=== PATIENT | male | born 1980 | race Two or more races ===

== ENCOUNTER 2020-10-27 12:19 | Outpatient (REF) | payer BC, SELFPAY ==
[2020-10-27 14:50] LABS: Alanine Aminotransferase 204 U/L (0-40); Albumin Level 4.1 g/dL (3.5-5.0); Alkaline Phosphatase 43 U/L (39-117); Anion Gap 13 (12-20); Aspartate Amino Transferase 47 U/L (5-37); Bilirubin Total 0.8 mg/dL (0.0-1.0); Blood Urea Nitrogen 14 mg/dL (9-16); Calcium 9.8 mg/dL (8.4-10.2); Carbon Dioxide 29 mmol/L (22-29); Chloride 102 mmol/L (96-108); Cholesterol 205 mg/dL; Estimated Glomerular Filt Rate > 60; Glucose Fasting 88 mg/dL (60-99); HDL Cholesterol 56 mg/dL; LDL Cholesterol Calculated 121 mg/dl; Potassium 4.2 mmol/L (3.3-5.1); Sodium 140 mmol/L (135-145); Total Protein 8.6 g/dL (6.5-8.0); Triglycerides 143 mg/dL
[2020-10-27 15:06] LABS: TSH reflex Free T4 2.76 uIU/mL (0.32-4.0)
== END 2020-10-27 12:20 | disposition home or self-care (01) ==
LOC: HO.HMGCLDS 12:19
PROVIDERS: PCP Nurse Practitioner Family; Visit Provider Nurse Practitioner Family
DX: Z00.00 Encounter for general adult medical examination without abnormal findings (principal); R74.8 Abnormal levels of other serum enzymes
CPT/HCPCS: 36415; 80053; 80061; 84443

== ENCOUNTER 2020-10-28 14:28 | Outpatient (REF) | payer BC, SELFPAY ==
[2020-10-29 04:31] LABS: Hepatitis B Surface Antigen Negative (Negative)
[2020-10-29 04:49] LABS: HBS Num1 132.14 mIU/mL (0-7.99); Hepatitis B Core Antibody Nonreactive (Nonreactive); ~HepC Num1 0.06 S/CO (0.00-0.79); ~Hepatitis B Surface Antibody REACTIVE (Nonreactive); ~Hepatitis C Antibody Nonreactive (Nonreactive)
[2020-10-29 13:27] LABS: Lyme Abs Screen <0.90 index
[2020-10-30 04:19] LABS: Hepatitis A Antibody IgM 0.12 Index (0-0.79); ~Hepatitis A Antibody IgM Nonreactive (Nonreactive)
== END 2020-10-28 14:29 | disposition home or self-care (01) ==
LOC: HO.HMGCLDS 14:28
PROVIDERS: PCP Nurse Practitioner Family; Visit Provider Nurse Practitioner Family
DX: R74.8 Abnormal levels of other serum enzymes (principal)
CPT/HCPCS: 36415; 86617; 86618; 86704; 86706; 86709; 86803; 87340

== ENCOUNTER 2020-12-01 08:13 | Outpatient (REF) | payer BC, SELFPAY ==
--- NOTE | ~2020-12-01 | US_ITS ---
EXAMINATION: US ABDOMEN COMPLETE CLINICAL INFORMATION: Abnormal LFTs. COMPARISON: CT abdomen pelvis 06/06/2018 TECHNIQUE: Real-time imaging of the abdominal viscera. FINDINGS: PANCREAS: Normal. ABDOMINAL AORTA: The proximal, mid, and distal segments are normal in caliber. INFERIOR VENA CAVA: Visualized portions are normal. LIVER: Liver echotexture is increased. The liver is normal in size. The liver contour is normal. No focal hepatic lesion. There is no intrahepatic biliary duct dilatation seen. GALLBLADDER: Normal. The gallbladder is physiologically distended without evidence of stones, sludge, polyps, wall thickening or pericholecystic fluid. COMMON BILE DUCT: Normal in caliber measuring 0.40 cm in diameter. RIGHT KIDNEY: Normal. No hydronephrosis. No renal calculi or focal parenchymal lesions. The kidney measures 13.0 cm in maximum dimension. LEFT KIDNEY: There is mild left hydronephrosis. There is a cyst in the upper pole measuring 7 x 5 x 5 mm. No renal calculi. The kidney measures 14.7 cm in maximum dimension. SPLEEN: Normal. The spleen measures 13.0 cm in maximum dimension. FREE FLUID: None. US/US abdomen complete IMPRESSION: Echogenic liver probably representing fatty infiltration. Mild left hydronephrosis. Small left renal cyst.
== END 2020-12-01 08:14 | disposition home or self-care (01) ==
LOC: HO.HMGCX 08:13
PROVIDERS: PCP Nurse Practitioner Family; Visit Provider Nurse Practitioner Family
DX: R74.8 Abnormal levels of other serum enzymes (principal)
CPT/HCPCS: 76700

== ENCOUNTER → 2021-01-27 14:52 | Outpatient (BNVA) | payer BC, SELFPAY | PROVIDERS: Visit Provider Urology ==

== ENCOUNTER 2021-06-28 14:56 | Outpatient (REF) | payer BC, SELFPAY ==
--- NOTE | ~2021-06-28 | CT_ITS ---
EXAMINATION: CT ABDOMEN WITHOUT CONTRAST CLINICAL INFORMATION: Calculus of kidney. COMPARISON: Ultrasound abdomen 12/01/[address] abdomen and pelvis 06/06/2018 TECHNIQUE: Multidetector volumetric imaging was performed from the superior aspect of the liver through the pubic symphysis. Sagittal and coronal reformatted images were obtained on the technologist's workstation. This CT examination was performed using dose optimization techniques as appropriate, variously including the following: *Automated exposure control *Adjustment of mA and/or kV according to patient size (this includes techniques or standardized protocols for targeted exams where dose is matched to indication/reason for exam; i.e. extremities or head) *Use of iterative reconstruction technique DLP: 423 mGy-cm FINDINGS: LUNG BASES: The lung bases are clear. The heart size is normal. LIVER, GALLBLADDER, AND BILIARY TREE: The liver is normal in size, shape, and attenuation. No focal hepatic lesion or biliary ductal dilatation is present. The gallbladder is contracted and appears unremarkable. PANCREAS: Unremarkable. SPLEEN: Unremarkable. ADRENAL GLANDS: Unremarkable. KIDNEYS AND URETERS: The kidneys are normal in size, shape, and attenuation. There is a 6 mm nonobstructive radiopaque calculi lower pole left kidney. It is approximately 13.5 cm from the posterior skin line. No additional radiopaque calculi seen. No caliectasis or hydronephrosis seen. There is a 6 mm exophytic lesion upper pole left kidney, stable. BLADDER: The bladder was not imaged. GASTROINTESTINAL TRACT: There is scattered stool and gas seen throughout the colon without significant distention. ABDOMINAL WALL: There is a small umbilical hernia containing intraperitoneal fat. LYMPH NODES: Small shotty lymph nodes are seen in the right mesentery with largest lymph node measuring 1 cm. VASCULAR: Unremarkable. PELVIC VISCERA: Unremarkable. OSSEOUS STRUCTURES: No aggressive lytic or sclerotic process seen. CT/CT abdomen pelvis wo con IMPRESSION: 6 mm nonobstructive radiopaque calculi lower pole left kidney. No caliectasis or hydronephrosis. On previous CT abdomen 06/07/2018 same stone measured 3 mm. 6 mm exophytic lesion upper pole left kidney, stable.
== END 2021-06-28 14:57 | disposition home or self-care (01) ==
LOC: HO.CT 14:56
PROVIDERS: PCP Nurse Practitioner Family; Visit Provider Urology
DX: N20.0 Calculus of kidney (principal)
CPT/HCPCS: 74176

== ENCOUNTER → 2022-08-16 16:00 | Outpatient (REF) | payer BC, SELFPAY ==
--- NOTE | 2022-08-16 16:04 | CA_ITS ---
Transthoracic Echocardiogram Patient (Last, First, Middle): Doe Celaya M Gender: Male Date of : 1980 Age: 42 Procedure Date: 08/16/2022 Procedure Type: Transthoracic Echocardiogram Location: OP Height: 190.5 cm Weight: 134.04 kg BSA: 2.59 m2 Heart Rate: bpm BP: 142 / 84 mmHg Marble Machine Operator: ANGELLA Referring MD: Rigo Marques [facility] [employer] Supervisor: Alvin Rivera MD Symptoms: R07.89 - Other chest pain Study Quality: Adequate ECG Rhythm: Sinus with extra beats Conclusions: - 1. Normal LV systolic function with mild LVH with impaired relaxation filling pattern 2. Normal cardiac valvular Dopplers 3. Normal RV systolic pressure 4. No gross pericardial effusion Findings Left Ventricle Normal left ventricular size and systolic function. There is mildly increased left ventricular wall thickness. The visually estimated ejection fraction is between 55-60%. Spectral Doppler is indicative of an impaired relaxation filling pattern. E/E prime ratio is between 8 and 15 consistent with indeterminate filling pressures. Right Ventricle Normal right ventricular cavity size and systolic function. Atria The left atrium is likely dilated. There is no evidence of interatrial shunt. The right atrium is normal in size. Aortic Valve The aortic valve structure and function is likely normal. There is no aortic valve stenosis. There is no aortic valve regurgitation. Mitral Valve Normal mitral valve structure and function. There is trace mitral valve regurgitation. There is no mitral valve stenosis. Pulmonic Valve The pulmonic valve was not well visualized. Tricuspid Valve Normal tricuspid valve structure. There is trace tricuspid valve regurgitation. The right ventricular systolic pressure is normal. The right ventricular systolic pressure is 17 mmHg. Normal right atrial pressure. There is no evidence of pulmonary hypertension. Great Vessels All visible segments of the aorta are normal in size. The pulmonary artery was not well visualized. Venous The inferior vena cava is normal in size and collapses greater than 50% with inspiration. Pericardium/Pleural There is no evidence of pericardial effusion. Prior Study Comparison Changes noted compared to prior study dated: 05/31/2018. mild LVH noted with impaired relaxation filling pattern Measurements 2D Linear Measurements IVSd: 1.23 0.6-0.9/0.6-1.0 cm LVIDd: 5.39 3.9-5.3/4.2-5.9 cm LVIDd Index: 2.08 2.4-3.2/2.2-3.1 cm/m2 LVIDs: 3.37 2.0-3.6 cm LVPWd: 1.20 0.7-1.1 cm Ao Root: 3.40 2.1-3.5 cm LA Diam: 3.90 2.7-3.8/3.0-4.0 cm LAIDs Index: 1.51 1.5-2.3 cm/m2 LV Mass: 334.49 67-162/88-224 g LV Mass Index: 129.15 43-95/49-115 g/m2 LVOT Diam: 2.10 3.0+(-)1.3 cm 2D Systolic Function EF 4C: 51.90 >55% EF 2C: 58.50 >55% EF BiP: 55.20 >55% Mitral Valve MV Pk E: 0.92 MV PK A: 0.89 MV Decel Time: 180.00 E/A: 1.00 E'Lateral: 9.57 E'Medial: 8.05 E/E' Med: 11.40 E/E' Lat: 9.60 PHT: 53.00 MVA PHT: 4.15 Decel [place]: 5.11 Aortic Valve AoV Pk Gustavo: 1.75 AoV Mn Gustavo: 1.14 AoV VTI: 0.31 AoV Pk Grad: 12.00 Aov Mn Grad: 6.00 CRISTA Cont.VTI: 2.48 LVOT LVOT Pk Gustavo: 1.26 LVOT Mn Gustavo: 0.82 LVOT VTI: 0.22 LVOT Pk Grad: 6.00 LVOT Mn Grad: 3.00 LVOT Diam: 2.10 LVOT Area: 3.46 Diastolic Function MV Pk E: 0.92 MV Pk A: 0.89 E/A: 1.00 E'Medial: 8.05 E/E' Med: 11.40 E' Laterial: 9.57 E/E' Lat: 9.60 Right Ventricle TAPSE (mm): 31.00 TVS' Gustavo: 16.00 Tricuspid Valve TR Pk Gustavo: 1.90 TR Pk Grad: 14.00 RA Press: 3.00 RVSP: 17.00 Great Vessels Aorta Ao Root-2D: 3.40 2.0-3.7 cm Ao Asc: 3.60 2.1-3.4 cm Pulmonary Valve PV Pk Gustavo: 1.29 Peak PV Grad: 7.00 Updated in Other Vendor System with Status of Final Alvin Rivera MD electronically signed on 08/17/2022 12:52:46 PM with status of Final
== END ==
LOC: HO.CARD 16:00
PROVIDERS: PCP Nurse Practitioner Family; Visit Provider Nurse Practitioner Family
DX: R07.89 Other chest pain (principal); R01.1 Cardiac murmur, unspecified
CPT/HCPCS: 93306

== ENCOUNTER 2022-10-14 07:18 | Outpatient (REF) | payer BC, SELFPAY ==
[2022-10-14 11:37] LABS: Appearance Urine Cloudy; Color Urine Yellow; Glucose Urine UA Negative (Negative); Leukocyte Esterase Urine Negative (Negative); Nitrite Urine Negative (Negative); PH 5.5 (5.0-9.0); UMIC TRIGGER UACC YES; Urine Blood Trace (Negative); Urine Ketones Negative (Negative); Urine Protein Trace mg/dL (Neg-Trace)
[2022-10-14 11:42] LABS: Bacteria Urine None Seen (None Seen); Hyaline Casts Urine 0-2 /LPF (0-2); RBC Urine 0-2 /HPF (0-2); Squamous Epithelial Cell Urine 0-2 /HPF (0-2); WBC Urine 0-5 /HPF (0-5)
[2022-10-14 11:49] LABS: MANUAL DIFF FLAG NO
[2022-10-14 12:01] LABS: Basophils Percent Auto 0.4 % (0-2); Eosinophils Absolute Auto 0.4 X10*3/uL (0.0-0.4); Eosinophils Percent Auto 4.4 % (0-4); Hematocrit 46.8 % (42.0-52.0); Hemoglobin 15.3 g/dl (14.0-18.0); Imm Gran Abs Auto 0.03 X10*3/uL (0.00-0.03); Imm Gran Pct Auto 0.4 % (0.0-0.4); Lymphocytes Absolute Auto 2.3 X10*3/uL (1.2-4.9); Lymphocytes Percent Auto 28.4 % (20-40); Mean Corpuscular HGB Conc 32.7 g/dl (31.0-36.0); Mean Corpuscular Volume 94.7 fL (80.0-98.0); Mean Platelet Volume 11.2 fL (9.4-12.4); Monocytes Absolute Auto 0.7 X10*3/uL (0.1-1.2); Neutrophils Absolute Auto 4.7 x10*3/uL (2.0-8.3); Neutrophils Percent Auto 58.4 % (45-73); Platelet Count 234 X10*3/uL (160-400); Red Blood Count 4.94 X10*6/uL (4.60-5.80); Red Cell Distribution Width 13.5 % (11.0-16.0); White Blood Count 8.1 X10*3/uL (4.8-10.8)
[2022-10-14 12:28] LABS: Alanine Aminotransferase 34 U/L (0-40); Albumin Level 4.2 g/dL (3.5-5.0); Alkaline Phosphatase 39 U/L (39-117); Anion Gap 10 (12-20); Aspartate Amino Transferase 20 U/L (5-37); Blood Urea Nitrogen 14 mg/dL (9-16); Carbon Dioxide 31 mmol/L (22-29); Chloride 103 mmol/L (96-108); Cholesterol 201 mg/dL; Estimated Glomerular Filt Rate > 60; Glucose Fasting 103 mg/dL (60-99); HDL Cholesterol 51 mg/dL; LDL Cholesterol Calculated 126 mg/dl; Potassium 3.9 mmol/L (3.3-5.1); Sodium 140 mmol/L (135-145); TSH reflex Free T4 3.13 uIU/mL (0.32-4.0); Total Protein 8.4 g/dL (6.5-8.0); Triglycerides 122 mg/dL
== END 2022-10-14 07:19 | disposition home or self-care (01) ==
LOC: HO.HMGCLDS 07:18
PROVIDERS: PCP Nurse Practitioner Family; Visit Provider Nurse Practitioner Family
DX: Z00.00 Encounter for general adult medical examination without abnormal findings (principal); G47.30 Sleep apnea, unspecified; I10 Essential (primary) hypertension; Z20.2 Contact with and (suspected) exposure to infections with a predominantly sexual mode of transmission
CPT/HCPCS: 36415; 80053; 80061; 81001; 84443; 85025

== ENCOUNTER 2022-11-17 08:37 | Outpatient (REF) | payer BC, SELFPAY ==
--- NOTE | ~2022-11-17 | XR_ITS ---
EXAMINATION: XR FOOT, RIGHT XR FOOT, LEFT CLINICAL INFORMATION: Right and left foot pain. COMPARISON: None available. TECHNIQUE: AP, lateral, and oblique views of the right and left feet were obtained. FINDINGS: No acute fracture or dislocation. No joint space narrowing or marginal osteophytes. No osseous erosion. Bilateral plantar and dorsal calcaneal enthesophytes. XR/XR foot LT min 3V IMPRESSION: 1. No acute osseous abnormality. 2. Bilateral plantar and dorsal calcaneal spurs.
--- NOTE | ~2022-11-17 | XR_ITS ---
EXAMINATION: XR KNEE, RIGHT XR KNEE, LEFT CLINICAL INFORMATION: Right and left knee pain. COMPARISON: Right and left knee radiographs dated 06/23/2015. TECHNIQUE: AP and lateral views of the right and left knees. FINDINGS: RIGHT KNEE: No acute fracture or dislocation. No joint space narrowing or marginal osteophytes. No osseous erosion. Superior patellar enthesophytes. No significant joint effusion. LEFT KNEE: No acute fracture or dislocation. Minimal medial compartment joint space narrowing with tiny marginal osteophytes, new when compared to the prior examination. No osseous erosion. Superior patellar enthesophytes. No significant joint effusion. XR/XR knee RT 2V IMPRESSION: RIGHT KNEE: Unremarkable examination. LEFT KNEE: Minimal medial compartment arthrosis, new when compared to the prior examination.
--- NOTE | ~2022-11-17 | XR_ITS ---
EXAMINATION: XR FOOT, RIGHT XR FOOT, LEFT CLINICAL INFORMATION: Right and left foot pain. COMPARISON: None available. TECHNIQUE: AP, lateral, and oblique views of the right and left feet were obtained. FINDINGS: No acute fracture or dislocation. No joint space narrowing or marginal osteophytes. No osseous erosion. Bilateral plantar and dorsal calcaneal enthesophytes. XR/XR foot RT min 3V IMPRESSION: 1. No acute osseous abnormality. 2. Bilateral plantar and dorsal calcaneal spurs.
--- NOTE | ~2022-11-17 | XR_ITS ---
EXAMINATION: XR KNEE, RIGHT XR KNEE, LEFT CLINICAL INFORMATION: Right and left knee pain. COMPARISON: Right and left knee radiographs dated 06/23/2015. TECHNIQUE: AP and lateral views of the right and left knees. FINDINGS: RIGHT KNEE: No acute fracture or dislocation. No joint space narrowing or marginal osteophytes. No osseous erosion. Superior patellar enthesophytes. No significant joint effusion. LEFT KNEE: No acute fracture or dislocation. Minimal medial compartment joint space narrowing with tiny marginal osteophytes, new when compared to the prior examination. No osseous erosion. Superior patellar enthesophytes. No significant joint effusion. XR/XR knee LT 2V IMPRESSION: RIGHT KNEE: Unremarkable examination. LEFT KNEE: Minimal medial compartment arthrosis, new when compared to the prior examination.
== END 2022-11-17 08:38 | disposition home or self-care (01) ==
LOC: HO.HMGCX 08:37
PROVIDERS: PCP Nurse Practitioner Family; Visit Provider Nurse Practitioner Family
DX: M25.561 Pain in right knee (principal); M25.562 Pain in left knee; M79.671 Pain in right foot; M79.672 Pain in left foot
CPT/HCPCS: 73560; 73630

== ENCOUNTER 2023-07-07 11:16 | Emergency (ER) | payer BC, SELFPAY ==
--- NOTE | ~2023-07-07 | US_ITS ---
EXAMINATION: Renal ultrasound. CLINICAL INDICATIONS: Left upper pole lesion. COMPARISON: CT of chest, abdomen and pelvis IV contrast 07/07/2023. TECHNIQUE: Limited imaging of left kidney is performed. FINDINGS: The left kidney measures 13.7 x 6.8 x 4.5 cm. There is a anechoic simple cyst upper pole left kidney measuring 1.4 x 1.3 x 1.1 cm. There is an extrarenal left kidney pelvis similar to CT abdomen exam performed earlier today US/US renal LT IMPRESSION: Simple cyst upper pole left kidney corresponds to the CT finding. There is an extrarenal left kidney pelvis..
--- NOTE | ~2023-07-07 | CT_ITS ---
CT chest, abdomen pelvis with IV contrast. Clinical indications: 20 pound weight loss since one month. COMPARISON: CT abdomen pelvis with and without contrast 06/06/2018. TECHNIQUE: 5 mm thin axial and reformatted 3 mm thin sagittal coronal images of chest, abdomen and pelvis were obtained following IV 85 metal Omnipaque 350. DLP 1226. This CT examination was performed using dose optimization technique as appropriate, variously including the following: Automated exposure control Adjustment of MA and/or KV according to patient size(this includes techniques or standardized protocols for targeted exams where dose is matched to indication/reason for exam; extremities or head. Use of iterative reconstruction techniques. FINDINGS: CHEST: LUNGS: The lungs are well-expanded and clear of acute process. There is no pulmonary nodule, mass or consolidation. Mediastinum: The thyroid lobes are symmetrical and normal. The central trachea and bronchi are widely patent. The heart size and great vessels are normal caliber. No abnormal size mediastinal or hilar lymph nodes seen. There is no pericardial effusion. Pleura: There is no pleural effusion or thickening. Axilla: No abnormal size axillary lymph nodes seen. The chest wall is unremarkable. Abdomen and pelvis: Liver, ducts and gallbladder: The liver is normal size contour and density. No focal lesion or intrahepatic ductal dilatation seen. Spleen: Unremarkable. Pancreas: Unremarkable. Adrenal glands: Unremarkable. Kidneys and ureter: Both kidney nephrograms are symmetrical in size and configuration and position. There is a 6 mm in radiopaque calculi mid pole calyx left kidney with extrarenal left renal pelvis. There is a 1.2 cm exophytic lesion upper pole left kidney. Previously measured 6 mm. A 1.6 cm cyst is seen in midpole right kidney. Lymphovascular structures: The abdominal aorta is normal caliber. No retroperitoneal lymph nodes seen. GI tract: There is scattered stool and gas seen throughout the colon without significant distention. The small bowel loops are normal caliber. Appendix is normal caliber. There is no free air or free fluid. Abdominal wall: There is a small umbilical hernia containing fat. Pelvis: The prostate gland is normal size. The seminal vesicles are symmetrical but slightly enlarged. The prostate gland appears normal. Osseous structures: No aggressive lytic or sclerotic process seen. CT/CT abdomen pelvis w IV con IMPRESSION: 1. Unremarkable CT chest, abdomen and pelvis exam. 2. Nonobstructive radiopaque calculi mid pole calyx left kidney. 3. Exophytic lesion upper pole left kidney has increased in size from the last CT abdomen exam 06/06/2018. Recommend ultrasound correlation. Simple cyst midpole right kidney 4. Mild constipation. 5. Small umbilical hernia containing fat.
[2023-07-07 11:25] VITALS: BP 156/98; PULSE 86; RESP 18; TEMP 37; O2SAT 98; BMI 34.8
--- NOTE | 2023-07-07 11:25 | ED.GENADULT ---
HPI - General Adult General Chief complaint: General Medical Stated complaint: abd/back pain,blood in urine, nauseous Time Seen by Provider: 07/07/23 15:28 Source: patient Mode of arrival: ambulatory Limitations: no limitations History of Present Illness HPI narrative: Patient comes to the emergency room complaining of left upper quadrant pain. Patient states it has been there for about 3 weeks, constant nausea, no vomiting. Patient states that in the last 3 weeks, he lost approximately 27 lbs. Patient states that for the last 2 days he has been seeing hematuria. Patient states that he has history of intermittent hematuria. Has had cystoscopies in the past and biopsies. Related Data Previous Rx's Medication Instructions Recorded sildenafil 25 mg tablet 25 mg PO DAILY PRN sexual activity 08/04/22 #14 tabs losartan 100 mg tablet 100 mg PO DAILY #90 tabs 08/22/22 albuterol sulfate 90 mcg/actuation 2 puff inhalation Q6H PRN 11/07/22 aerosol inhaler shortness of breath or wheezing #8.5 grams tadalafil 2.5 mg tablet 2.5 mg PO DAILY PRN sexual 12/02/22 activity #14 tabs sertraline 50 mg tablet 50 mg PO BEDTIME #90 tabs 02/02/23 hydrochlorothiazide 25 mg tablet 25 mg PO DAILY #90 tabs 02/28/23 valacyclovir 1 gram tablet 1,000 mg PO DAILY #90 tabs 04/05/23 budesonide-formoterol HFA 80 1 puff inhalation BID #30.6 grams 04/07/23 mcg-4.5 mcg/actuation aerosol inhaler (Symbicort) albuterol sulfate 2.5 mg/3 mL 2.5 mg (3 mL) inhalation QID PRN 06/04/23 (0.083 %) solution for nebulization shortness of breath or wheezing #90 mL ibuprofen 800 mg tablet 800 mg PO Q8H PRN pain 30 days #90 06/04/23 tabs metoprolol succinate 25 mg 25 mg PO DAILY #90 tabs 06/25/23 tablet,extended release 24 hr Allergies Allergy/AdvReac Type Severity Reaction Status Date / Time No Known Allergies Allergy Verified 07/07/23 11:28 [No Known Allergies*] Review of Systems Review of Systems: Constitutional : Patient complaining of weight loss of approximately 27 lb, denies night sweats ENT/Mouth : No Hearing loss, No Ear Pain, No Nasal Congestion, No Sinus Pain, No Hoarseness, No sore throat, No Rhinorrhea, No Swallowing Difficulty Eyes: No Eye Pain, No Swelling, No Redness, No Foreign Body, No Discharge, No Vision Changes Cardiovascular : No Chest Pain, No SOB, No Dyspnea on Exertion, No Orthopnea, No Edema, No Palpitations Respiratory : No Cough, No Sputum, No Wheezing, No Smoke Exposure, No Dyspnea Gastrointestinal : No Nausea, No Vomiting, No Diarrhea, No Constipation, No abdominal Pain, No Hematochezia, No Melena Genitourinary : Complaining of hematuria Musculoskeletal : No joint pain, No Myalgias, No Joint Swelling Skin : No Skin Lesions, No rash Neuro : No Weakness, No Numbness, No Paresthesias, No Loss of Consciousness, No Dizziness, No Headache Psych : No Anxiety/Panic, No Depression, No SI/HI/AH/VH, No Social Issues, Heme/Lymph: No Bruising, No Bleeding,No Lymphadenopathy Endocrine : No Polyuria, No Polydipsia, No Temperature Intolerance [facility] Past Medical History Medical History Nephrolithiasis HTN (hypertension) Abdominal pain Spermatocele Cellulitis Orchalgia Asthma Epididymal cyst Surgical History History of surgery Social History Social History Housing: Apartment Patient Tobacco Use Status: Former Tobacco user Quit Date: 12 years ago Smoked in Last 30 Days: No e-Cigarette/Vaping Use: Never Used Second Hand Smoke Exposure: No Use of substances other than those prescribed or required for medical reasons: No Advance Directives: No Advance Directives Information Provided: No service: No Current occupational status: employed Current occupation: [employer] system Current occupational exposures/hazards: No Cognitive needs: No Hearing needs: No Vision needs: No Physical Exam ED Vital Signs: Vital Signs - 24 hr 07/07/23 11:25 07/07/23 14:51 07/07/23 16:31 Temperature 98.6 F 98.8 F 98.2 F Pulse Rate 86 90 94 Respiratory Rate 18 20 16 Blood Pressure 156/98 H 144/92 H 138/84 Pulse Oximetry 98 94 95 Oxygen Delivery Method Room Air Room Air Room Air BMI result Body Mass Index 34.8 Const Other: Appearance: Alert. Oriented X3. No acute distress. Eyes: Pupils equal, round and reactive to light. ENT: Pharynx normal. Neck: Normal inspection. Neck supple. No lymph nodes noted. No crepitus CVS: Normal heart rate and rhythm. Pulses normal. Normal S1 and S2 Respiratory: No respiratory distress. Breath sounds normal. No Wheezing. No rales Abdomen: Soft , mild tenderness to palpation in the left upper quadrant, no rebound, no guarding Skin: Skin warm and dry. Normal skin color. Normal skin turgor. Extremities: No lower extremity edema. No Lacerations. No Rash Neuro: Oriented X 3. No motor deficit. No sensory deficit. Moving all extremities. No slurred speech. CN 2 through 12 grossly intact Psych: calm, cooperative, anxious Course Course Course Narrative: This is an RME: Additional HPI, ROS, PE not included below will be deferred to primary provider. Patient is a 42-year-old male who presents emergency department for evaluation of intermittent dizziness, L ABD pain, L back pain, hematuria x 2 days, hx renal calculi. Nausea, vomiting and reports 27lb unintentional loss over 2 weeks, previously with diarrhea. Plan: Labs, urinalysis Medications Administered Discontinued Medications Generic Name Dose Route Start Last Admin Trade Name Freq PRN Reason Stop Dose Admin Diphenhydramine HCl 50 mg 07/07/23 15:44 07/07/23 16:25 Diphenhydramine Hcl 25 Mg Capsule PO 07/07/23 15:45 50 mg ONCE ONE Administration Iohexol 100 ml 07/07/23 16:49 07/07/23 16:49 Iohexol 350 Mg/Ml 100 Ml Infus..Btl IV 07/07/23 16:50 85 ml ONCE ONE Administration Lorazepam 2 mg 07/07/23 15:44 07/07/23 16:25 Lorazepam 1 Mg Tablet PO 07/07/23 15:45 2 mg ONCE ONE Administration Potassium Chloride 60 meq 07/07/23 15:30 07/07/23 15:37 Potassium Chloride Packet 20 Meq Packet PO 07/07/23 15:31 60 meq ONCE ONE Administration Medical Decision Making Medical Decision Making [facility] Narrative: -my interpretation of labs: normal hematology, chemistry shows hypokalemia, 3.1, repleted p.o., LFTs normal, lipase normal, urinalysis shows hematuria and proteinuria, trace leukocyte esterase, no dysuria or flank pain -my interpretation of CT scan: bilateral renal cyst, no other obvious abnormality. -radiology report shows unremarkable CT scan of the chest, abdomen and pelvis other than an exophytic lesion in the left kidney that increased size from previous CT scans from 2019. -an ultrasound was ordered, showing a simple cyst in the pole of the left kidney -I discussed with the patient that given his history of recent weight loss, I recommend him to follow-up with his primary care physician or with Gastroenterology for an endoscopy/colonoscopy. Patient agrees with plan. -patient is source of pain likely musculoskeletal -also, patient has not had any follow-up with Urology for chronic hematuria for several years, patient will be provided with the information to schedule an appointment Differential Diagnosis Differential Diagnoses: The differential diagnosis associated with the presentation includes (Ureterolithiasis, renal colic, cystitis, malignancy, gastritis) Admission/Observation Consideration of admission/observation: Escalation of care including admission/observation considered (Given patient's symptoms, admission considered on arrival) Lab Data MDM Lab Attestation statement: I reviewed the patient's lab results. 07/07/23 11:41 07/07/23 11:41 Labs: Lab Results 07/07/23 Range/Units 11:41 WBC 9.1 (4.8-10.8) X10*3/uL RBC 5.02 (4.60-5.80) X10*6/uL Hgb 15.8 (14.0-18.0) g/dl Hct 46.1 (42.0-52.0) % MCV 91.8 (80.0-98.0) fL MCH 31.5 (27.0-33.0) pg MCHC 34.3 (31.0-36.0) g/dl RDW 13.2 (11.0-16.0) % Plt Count 264 (160-400) X10*3/uL MPV 11.2 (9.4-12.4) fL Immature Gran % (Auto) 0.2 (0.0-0.4) % Neut % (Auto) 60.8 (45-73) % Lymph % (Auto) 28.2 (20-40) % [place] % (Auto) 7.7 (2-11) % Eos % (Auto) 2.7 (0-4) % Baso % (Auto) 0.4 (0-2) % Lymph # (Auto) 2.6 (1.2-4.9) X10*3/uL [place] # (Auto) 0.7 (0.1-1.2) X10*3/uL Eos # (Auto) 0.3 (0.0-0.4) X10*3/uL Baso # (Auto) 0.0 (0.0-0.2) X10*3/uL Abs Immat Gran (auto) 0.02 (0.00-0.03) X10*3/uL Absolute Neuts (auto) 5.5 (2.0-8.3) x10*3/uL Absolute Nucleated RBC 0.000 (0.0-0.012) X10*3/uL Nucleated RBC % (auto) 0.0 (0.0-0.2) /100WBC Sodium 138 (135-145) mmol/L Potassium 3.1 L (3.3-5.1) mmol/L Chloride 103 (96-108) mmol/L Carbon Dioxide 27 (22-29) mmol/L Anion Gap 11 L (12-20) BUN 16 (9-16) mg/dL Creatinine 1.10 (0.5-1.4) mg/dL Estim Creat Clear Calc 125.2 Estimated GFR > 60 Random Glucose 117 H (60-115) mg/dL Calcium 9.7 (8.4-10.2) mg/dL Total Bilirubin 1.1 H (0.0-1.0) mg/dL AST 26 (5-37) U/L ALT 38 (0-40) U/L Alkaline Phosphatase 45 (39-117) U/L Total Protein 9.2 H (6.5-8.0) g/dL Albumin 4.3 (3.5-5.0) g/dL Lipase 38 (8-78) U/L Urine Color Dark Yellow Urine Appearance Clear Urine pH 5.5 (5.0-9.0) Ur Specific [place] >= 1.030 H (1.005-1.025) Urine Protein 30 (1+) H (Neg-Trace) mg/dL Urine Glucose (UA) Negative (Negative) mg/dL Urine Ketones Trace (Negative) mg/dL Urine Blood Trace H (Negative) Urine Nitrite Negative (Negative) Ur Leukocyte Esterase Trace H (Negative) Urine RBC 0-2 (0-2) /HPF Urine WBC 0-5 (0-5) /HPF Ur Squamous Epith Cells 3-5 (0-2) /HPF Urine Bacteria None Seen (None Seen) Hyaline Casts 0-2 (0-2) /LPF Independent Interpretation I performed an independent interpretation of an: CT Scan Radiology Impression Discussion of test interpretation with radiology: I have reviewed the radiologist's reading. Radiologist Impression: CHEST: LUNGS: The lungs are well-expanded and clear of acute process. There is no pulmonary nodule, mass or consolidation. Mediastinum: The thyroid lobes are symmetrical and normal. The central trachea and bronchi are widely patent. The heart size and great vessels are normal caliber. No abnormal size mediastinal or hilar lymph nodes seen. There is no pericardial effusion. Pleura: There is no pleural effusion or thickening. Axilla: No abnormal size axillary lymph nodes seen. The chest wall is unremarkable. Abdomen and pelvis: Liver, ducts and gallbladder: The liver is normal size contour and density. No focal lesion or intrahepatic ductal dilatation seen. Spleen: Unremarkable. Pancreas: Unremarkable. Adrenal glands: Unremarkable. Kidneys and ureter: Both kidney nephrograms are symmetrical in size and configuration and position. There is a 6 mm in radiopaque calculi mid pole calyx left kidney with extrarenal left renal pelvis. There is a 1.2 cm exophytic lesion upper pole left kidney. Previously measured 6 mm. A 1.6 cm cyst is seen in midpole right kidney. Lymphovascular structures: The abdominal aorta is normal caliber. No retroperitoneal lymph nodes seen. GI tract: There is scattered stool and gas seen throughout the colon without significant distention. The small bowel loops are normal caliber. Appendix is normal caliber. There is no free air or free fluid. Abdominal wall: There is a small umbilical hernia containing fat. Pelvis: The prostate gland is normal size. The seminal vesicles are symmetrical but slightly enlarged. The prostate gland appears normal. Osseous structures: No aggressive lytic or sclerotic process seen. CT/CT chest w IV con IMPRESSION: 1. Unremarkable CT chest, abdomen and pelvis exam. 2. Nonobstructive radiopaque calculi mid pole calyx left kidney. 3. Exophytic lesion upper pole left kidney has increased in size from the last CT abdomen exam 06/06/2018. Recommend ultrasound correlation. Simple cyst midpole right kidney 4. Mild constipation. 5. Small umbilical hernia containing fat. FINDINGS: The left kidney measures 13.7 x 6.8 x 4.5 cm. There is a anechoic simple cyst upper pole left kidney measuring 1.4 x 1.3 x 1.1 cm. There is an extrarenal left kidney pelvis similar to CT abdomen exam performed earlier today US/US renal LT IMPRESSION: Simple cyst upper pole left kidney corresponds to the CT finding. There is an extrarenal left kidney pelvis.. Critical Care Time Critical Care Time Critical Care Time: Yes Total Critical Care Time: 75 Attestation: I have personally provided critical care time. Time includes review of lab data, radiology results, discussion with consultants, and monitoring for potential decompensation. Intervention performed as documented. Discharge Plan Discharge Clinical Impression: Abdominal pain, Microscopic hematuria Patient Disposition: Home, Self-Care Instructions: Hematuria (ED), Abdominal Pain (ED) Additional Instructions: Please follow-up with your primary care physician tomorrow. If you have any worsening or new symptoms, please return to the emergency room or call 911 Prescriptions: No Action losartan 100 mg tablet 100 mg PO DAILY Qty: 90 1RF tadalafil 2.5 mg tablet 2.5 mg PO DAILY PRN (Reason: sexual activity) Qty: 14 5RF Rx Instructions: administer approximately 30min before sexual activity; do not use more than 1 dose per 24hrs sertraline 50 mg tablet 50 mg PO BEDTIME Qty: 90 1RF hydrochlorothiazide 25 mg tablet 25 mg PO DAILY Qty: 90 1RF valacyclovir 1 gram tablet 1,000 mg PO DAILY Qty: 90 2RF budesonide-formoterol [Symbicort] 80-4.5 mcg/actuation HFA aerosol inhaler 1 puff inhalation BID Qty: 30.6 1RF ibuprofen 800 mg tablet 800 mg PO Q8H PRN (Reason: pain) 30 Days Qty: 90 0RF albuterol sulfate 2.5 mg /3 mL (0.083 %) solution for nebulization 2.5 mg inhalation QID PRN (Reason: shortness of breath or wheezing) Qty: 90 0RF metoprolol succinate 25 mg tablet extended release 24 hr 25 mg PO DAILY Qty: 90 1RF sildenafil 25 mg tablet 25 mg PO DAILY PRN (Reason: sexual activity) Qty: 14 0RF Rx Instructions: administer 30 minutes to 4 hours before activity albuterol sulfate 90 mcg/actuation HFA aerosol inhaler 2 puff inhalation Q6H PRN (Reason: shortness of breath or wheezing) Qty: 8.5 3RF Referrals: Ric Gabriel MD [Physician] - 07/10/23 (Chronic microscopic hematuria) Hamlet Badillo MD [Physician] - 07/10/23 (Significant weight loss, never had colonoscopy)
[2023-07-07 11:46] LABS: MANUAL DIFF FLAG NO
[2023-07-07 11:49] LABS: Appearance Urine Clear; Color Urine Dark Yellow; Glucose Urine UA Negative (Negative); Leukocyte Esterase Urine Trace (Negative); Nitrite Urine Negative (Negative); PH 5.5 (5.0-9.0); Specific Gravity - Urine >= 1.030 (1.005-1.025); UMIC TRIGGER UACC YES; Urine Blood Trace (Negative); Urine Ketones Trace mg/dL (Negative); Urine Protein 30 (1+) mg/dL (Neg-Trace)
[2023-07-07 11:51] LABS: Basophils Percent Auto 0.4 % (0-2); Eosinophils Absolute Auto 0.3 X10*3/uL (0.0-0.4); Eosinophils Percent Auto 2.7 % (0-4); Hematocrit 46.1 % (42.0-52.0); Hemoglobin 15.8 g/dl (14.0-18.0); Imm Gran Abs Auto 0.02 X10*3/uL (0.00-0.03); Imm Gran Pct Auto 0.2 % (0.0-0.4); Lymphocytes Absolute Auto 2.6 X10*3/uL (1.2-4.9); Lymphocytes Percent Auto 28.2 % (20-40); Mean Corpuscular HGB Conc 34.3 g/dl (31.0-36.0); Mean Corpuscular Hemoglobin 31.5 pg (27.0-33.0); Mean Corpuscular Volume 91.8 fL (80.0-98.0); Mean Platelet Volume 11.2 fL (9.4-12.4); Monocytes Absolute Auto 0.7 X10*3/uL (0.1-1.2); Monocytes Percent Auto 7.7 % (2-11); Neutrophils Absolute Auto 5.5 x10*3/uL (2.0-8.3); Neutrophils Percent Auto 60.8 % (45-73); Platelet Count 264 X10*3/uL (160-400); Red Blood Count 5.02 X10*6/uL (4.60-5.80); Red Cell Distribution Width 13.2 % (11.0-16.0); White Blood Count 9.1 X10*3/uL (4.8-10.8)
[2023-07-07 11:52] LABS: Bacteria Urine None Seen (None Seen); Hyaline Casts Urine 0-2 /LPF (0-2); RBC Urine 0-2 /HPF (0-2); WBC Urine 0-5 /HPF (0-5)
[2023-07-07 12:06] LABS: Alanine Aminotransferase 38 U/L (0-40); Albumin Level 4.3 g/dL (3.5-5.0); Alkaline Phosphatase 45 U/L (39-117); Anion Gap 11 (12-20); Aspartate Amino Transferase 26 U/L (5-37); Bilirubin Total 1.1 mg/dL (0.0-1.0); Blood Urea Nitrogen 16 mg/dL (9-16); Calcium 9.7 mg/dL (8.4-10.2); Carbon Dioxide 27 mmol/L (22-29); Chloride 103 mmol/L (96-108); Creatinine Clr Calc Pharmacy 125.2; Estimated Glomerular Filt Rate > 60; Glucose Random 117 mg/dL (60-115); Lipase 38 U/L (8-78); Potassium 3.1 mmol/L (3.3-5.1); Sodium 138 mmol/L (135-145); Total Protein 9.2 g/dL (6.5-8.0)
[2023-07-07 14:51] VITALS: BP 144/92; PULSE 90; RESP 20; TEMP 37.1; O2SAT 94
[2023-07-07] MEDS: Potassium Chloride Packet 20 MEQ PACKET 60 MEQ PO (15:37)
[2023-07-07] MEDS: diphenhydrAMINE HCL 25 MG CAPSULE 50 MG PO (16:25)
[2023-07-07] MEDS: LORazepam 1 MG TABLET 2 MG PO (16:25)
[2023-07-07 16:31] VITALS: BP 138/84; PULSE 94; RESP 16; TEMP 36.8; O2SAT 95
[2023-07-07] MEDS: iohexoL 350 MG/ML 100 ML INFUS..BTL IV (16:49)
--- NOTE | 2023-07-07 21:11 | PC.NURSE ---
PT DOES NOT WANT VITALS AT TIME OF DISCHARGE
== END 2023-07-07 21:12 | disposition home or self-care (01) ==
PROVIDERS: Nurse Practitioner Family; Emergency Provider Emergency Medicine
DX: R31.29 Other microscopic hematuria (principal); R10.12 Left upper quadrant pain
CPT/HCPCS: 36415; 71260; 74177; 76775; 80053; 81001; 83690; 85025; 99284; Q9967

== ENCOUNTER 2024-01-17 13:55 | Outpatient (AMB) | payer BC, SELFPAY ==
--- NOTE | 2024-01-17 14:00 | A.OFFVIS_ITS ---
Intake Visit Reasons: Hx Of Kidney stones/Hematuria(last seen 2020) Intake Note: Patient is present for Kidney Stones/Hematuria Patient was last seen in our office in 2020 Urology Med:Tadalafil, Sildenafil Antibiotic Allergy:None Blood Thinner: None Operations Specialist Required: No Accompanied by: Self / Same As Patient Allergies No Known Allergies [No Known Allergies*] Allergy (Verified 01/17/24 14:02) HPI Comments Details: Doe is a pleasant male. 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 There is a 6 mm in radiopaque calculi mid pole calyx left kidney with extrarenal left renal pelvis. There is a 1.2 cm exophytic lesion upper pole left kidney. Previously measured 6 mm. A 1.6 cm cyst is seen in midpole right kidney. Ultrasound confirms cyst Cystitis cystica Prior response to suppression Nephrolithiasis Prior episodes Imaging - 12/16 renal ultrasound with mild left hydronephrosis but no stone seen - 12/18 left extrarenal pelvis Laboratories - 11/16 Cr 1.1 Discussed imaging results Recommend CT scan for further characterization [facility] Medical History Nephrolithiasis HTN (hypertension) Abdominal pain Spermatocele Cellulitis Orchalgia Asthma Epididymal cyst Surgical History History of surgery Social History Housing: Apartment Patient Tobacco Use Status: Former Tobacco user e-Cigarette/Vaping Use: Never Used Second Hand Smoke Exposure: No service: No Current occupational status: employed Current occupation: [employer] Current occupational exposures/hazards: No Cognitive needs: No Hearing needs: No Vision needs: No Review of Systems Const Denies chills and Denies fever(s) Card Reports no additional complaints and Denies syncope Resp Denies cough GI Denies abdominal pain and Denies heartburn Reports as per HPI and Denies change in libido Neuro Denies syncope Psych Denies change in libido Endo Denies change in libido Physical Exam Const General: cooperative, healthy appearing, comfortable and no acute distress Orientation/consciousness: patient oriented x3 HEENT Face and sinus: Yes normal facial exam Mouth: moist mucous membranes Neck Neck: Yes normal visual inspection, Yes full ROM and Yes trachea midline Chest Chest palpation & inspection: normal inspection of the chest Resp Effort & Inspection: normal respiratory effort, able to speak in complete [place] and no respiratory distress GI Inspection: Yes normal to inspection Back/Spine/Pelvis Cervical Spine: normal cervical lordosis Thoracic/Lumbar Spine: thoracic and lumbar spine normal to inspection Skin General skin exam: no rashes or lesions noted Neuro General: patient oriented x3, gait normal, tone normal and moves all extremities Extrem General: Yes normal to inspection and Yes capillary refill normal Assessment & Plan Assessment & Plan (1) Nephrolithiasis: Code(s): N20.0 - Calculus of kidney Category: Medical (2) Cystitis cystica: Code(s): N30.80 - Other cystitis without hematuria Category: Medical Plan Plan office cystoscopy Orders: Orders AMB Urinalysis Automated Today Z13.9 - Encounter for screening, unspecified Patient Instructions: Imaging studies, laboratory and physical exam results were discussed and reviewed in detail. No major barriers to patient understanding were identified. An opportunity to ask questions regarding the treatment plan was provided. All questions were answered. The patient expressed understanding and agreement with the above treatment plan. The patient is aware they should contact our office by phone for worsening of their current condition or the appearance of new urologic symptoms. Compliance is encouraged with any medications and followup testing that is ordered. It is a privilege to participate in the urologic care of your patient. If you have any questions or concerns regarding treatment for the above conditions, or other urologic issues, please do not hesitate to contact me. The office telephone contact is [phone]. This note is constructed using voice recognition software. While every effort has been made to ensure accuracy astrobiologist errors may have been included. Yours sincerely, Dr Ric Gabriel MD, [facility] - Urology Providers of Expert, Compassionate Care for the Genitourinary System Coding Level of Care Code Est Pt Level 4 (13767) Diagnoses Nephrolithiasis N20.0 Cystitis cystica N30.80
== END 2024-01-17 15:09 | disposition home or self-care (01) ==
PROVIDERS: Visit Provider Urology
DX: N20.0 Calculus of kidney (principal); N30.80 Other cystitis without hematuria
CPT/HCPCS: 99214

== ENCOUNTER → 2024-01-17 13:55 | Outpatient (BNVA) | payer BC, SELFPAY | PROVIDERS: Visit Provider Urology ==

== ENCOUNTER 2024-02-08 14:21 | Outpatient (REF) | payer BC, SELFPAY ==
--- NOTE | ~2024-02-08 | US_ITS ---
EXAMINATION: US RETROPERITONEAL LIMITED (RENAL ONLY) CLINICAL INFORMATION: Other cystitis without hematuria. COMPARISON: Renal ultrasound 07/07/2023. CT abdomen and pelvis 07/07/2023. Ultrasound abdomen complete 12/01/2020. TECHNIQUE: Real-time imaging of the kidneys. FINDINGS: RIGHT KIDNEY: 11.1 x 5.4 x 5.7 cm (SAG x AP x TRV). The kidney is normal in size, contour, and echogenicity. Renal cortical thickness is normal. No renal calculi or hydronephrosis. 2 benign renal cysts are noted with a 2.4 x 1.4 x 1.5 cm lower pole cyst with a tiny focus of mural calcification suggesting Bosniak class II along with a small lower pole 0.7 cm Bosniak class I cyst. Neither of the cysts require additional imaging or follow-up. No solid renal masses are seen. LEFT KIDNEY: 14.5 x 6.4 x 5.9 cm (SAG x AP x TRV). The kidney is normal in size, contour, and echogenicity. Renal cortical thickness is normal. No focal parenchymal lesions or hydronephrosis. There is a lower pole 6 mm echogenic focus seen with twinkle artifact consistent with nonobstructing calculus. US/US renal BI IMPRESSION: 1. Nonobstructing 6 mm left lower pole calculus. 2. Benign Bosniak class I and Bosniak class II renal cysts need no further imaging or follow-up. Electronically signed by: Demar Mitchell MD 02/14/2024 12:06 AM EDT
== END 2024-02-08 14:22 | disposition home or self-care (01) ==
LOC: HO.US 14:21
PROVIDERS: Visit Provider Urology
DX: N30.80 Other cystitis without hematuria (principal); N20.0 Calculus of kidney; N13.30 Unspecified hydronephrosis
CPT/HCPCS: 76775

== ENCOUNTER 2024-03-12 10:45 | Outpatient (AMB) | payer BC, SELFPAY ==
--- NOTE | 2024-03-12 10:58 | A.OFFVIS_ITS ---
Intake Visit Reasons: Cystoscopy/Ultrasound(set) Intake Note: Patient is present for Cystoscopy/ultrasound Urology Medication:tadalafil, sildenafil Antibiotic Allergy:none Blood Thinner:none [id number] Exp:09/06/26 Tip Stitcher Required: No Allergies No Known Allergies [No Known Allergies*] Allergy (Verified 03/12/24 11:00) Medication List - Last Reconciled 03/12/24 by Ric Gabriel MD albuterol sulfate 2.5 mg (3 mL) inhalation QID PRN albuterol sulfate 90 mcg/actuation 2 puffs inhalation Q6H PRN fluticasone furoate-vilanterol 50-25 mcg/dose (Breo Ellipta) 1 inh inhalation DAILY 30 days hydrochlorothiazide 25 mg PO DAILY ibuprofen 800 mg PO Q8H PRN 30 days losartan 100 mg PO DAILY metoprolol succinate ER 25 mg PO DAILY sertraline 50 mg PO BEDTIME sildenafil 25 mg PO DAILY PRN tadalafil 2.5 mg PO DAILY PRN trimethoprim 100 mg PO DAILY 90 days valacyclovir 1,000 mg PO DAILY HPI Comments Details: Doe is a pleasant male. 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 There is a 6 mm in radiopaque calculi mid pole calyx left kidney with extrarenal left renal pelvis. There is a 1.2 cm exophytic lesion upper pole left kidney. Previously measured 6 mm. A 1.6 cm cyst is seen in midpole right kidney. Ultrasound confirms cyst Cystitis cystica Prior response to suppression Nephrolithiasis Prior episodes Imaging - 12/16 renal ultrasound with mild left hydronephrosis but no stone seen - 12/18 left extrarenal pelvis Laboratories - 11/16 Cr 1.1 Discussed imaging results Recommend CT scan for further characterization [facility] Medical History Nephrolithiasis HTN (hypertension) Abdominal pain Spermatocele Cellulitis Orchalgia Asthma Epididymal cyst Surgical History (Reviewed 11/07/22 @ 18:08 by [facility] History of surgery Social History Housing: Apartment Patient Tobacco Use Status: Former Tobacco user e-Cigarette/Vaping Use: Never Used Second Hand Smoke Exposure: No service: No Current occupational status: employed Current occupation: [employer] system Current occupational exposures/hazards: No Cognitive needs: No Hearing needs: No Vision needs: No Review of Systems Const Denies chills and Denies fever(s) Card Reports no additional complaints and Denies syncope Resp Denies cough GI Denies abdominal pain and Denies heartburn Reports as per HPI and Denies change in libido Neuro Denies syncope Psych Denies change in libido Endo Denies change in libido Physical Exam Const General: cooperative, healthy appearing, comfortable and no acute distress Orientation/consciousness: patient oriented x3 HEENT Face and sinus: Yes normal facial exam Mouth: moist mucous membranes Neck Neck: Yes normal visual inspection, Yes full ROM and Yes trachea midline Chest Chest palpation & inspection: normal inspection of the chest Resp Effort & Inspection: normal respiratory effort, able to speak in complete sentences and no respiratory distress GI Inspection: Yes normal to inspection Back/Spine/Pelvis Cervical Spine: normal cervical lordosis Thoracic/Lumbar Spine: thoracic and lumbar spine normal to inspection Skin General skin exam: no rashes or lesions noted Neuro General: patient oriented x3, gait normal, tone normal and moves all extremities Extrem General: Yes normal to inspection and Yes capillary refill normal Office Procedures Cystoscopy Consent Discussed risk and benefit or proposed procedure with the patient. Information consent for procedure given to the patient. Discussed technical aspects, risks, benefits and alternatives in full. Addressed all of the patient's questions and concerns regarding the procedure. The patient demonstrated knowledge and un derstanding. They wish to proceed with this procedure. Preparation The patient was prepped in the usual manner. A field marketing director was present and in the room. Genitalia was prepped with betadine solution in a sterile manner. Lidocaine Jelly 2% was placed into the urethra and 16Fr flexible Olympus cystoscope was inserted into the meatus after adequate lubrication. Procedure Cystoscopy performed using a disposable Urovue digital 16 [place] cystoscope. 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 DISPOSABLE SCOPE URO-G FLEXIBLE SCOPE Procedure code (CPT) selection complete Office Meds lidocaine HCl 2 % mucosal jelly in applicator Performing Provider: Ric Gabriel MD Performing Location: [facility] Administered by: Greg Guajardo LPN on 03/12/24 11:13 Dose Route Admin Location Dispensed Lot Number Expiration Date [facility] Sash Assembler 10 mL intra-urethral 10 mL nitrofurantoin monohydrate/macrocrystals 100 mg capsule Performing Provider: Ric Gabriel MD Performing Location: [facility] Administered by: Greg Guajardo LPN on 03/12/24 11:13 Dose Route Admin Location Dispensed Lot Number Expiration Date [place] Sash Assembler 100 mg PO 1 cap naproxen 500 mg tablet Performing Provider: Ric Gabriel MD Performing Location: [facility] Administered by: Greg Guajardo LPN on 03/12/24 11:13 Dose Route Admin Location Dispensed Lot Number Expiration Date [place] Sash Assembler 500 mg PO 1 tab Assessment & Plan Assessment & Plan (1) Trigonitis with hematuria: Code(s): N30.31 - Trigonitis with hematuria Category: Medical (2) Cystitis cystica: Code(s): N30.80 - Other cystitis without hematuria Category: Medical Plan Three-month follow-up Orders: Orders AMB Cystoscopy Today N30.80 - Other cystitis without hematuria, R10.9 - Unspecified abdominal pain, R31.29 - Other microscopic hematuria Medications: New trimethoprim 100 mg PO DAILY 90 days 90 tabs 1RF N30.80 - Other cystitis without hematuria, R33.9 - Retention of urine, unspecified Patient Instructions: Imaging studies, laboratory and physical exam results were discussed and reviewed in detail. No major barriers to patient understanding were identified. An opportunity to ask questions regarding the treatment plan was provided. All questions were answered. The patient expressed understanding and agreement with the above treatment plan. The patient is aware they should contact our office by phone for worsening of their current condition or the appearance of new urologic symptoms. Compliance is encouraged with any medications and followup testing that is ordered. It is a privilege to participate in the urologic care of your patient. If you have any questions or concerns regarding treatment for the above conditions, or other urologic issues, please do not hesitate to contact me. The office telephone contact is [phone]. This note is constructed using voice recognition software. While every effort has been made to ensure accuracy supervisor fryer farm errors may have been included. Yours sincerely, Dr Ric Gabriel MD, [facility] - Urology Providers of Expert, Compassionate Care for the Genitourinary System Coding Level of Care Code Est Pt Level 4 (87251) Diagnoses Trigonitis with hematuria N30.31 Cystitis cystica N30.80 CPT Codes Cystoscopy - CPT: 62202-[id number] ([id number])
== END 2024-03-12 11:33 | disposition home or self-care (01) ==
PROVIDERS: Visit Provider Urology
DX: N30.81 Other cystitis with hematuria (principal); N30.31 Trigonitis with hematuria; R10.9 Unspecified abdominal pain
CPT/HCPCS: 52000; 99214

== ENCOUNTER → 2024-03-12 10:45 | Outpatient (BNVA) | payer BC, SELFPAY | PROVIDERS: Visit Provider Urology | DX: N30.31 Trigonitis with hematuria (principal); N30.81 Other cystitis with hematuria | CPT/HCPCS: 52000 ==

== ENCOUNTER 2024-06-12 15:19 | Outpatient (AMB) | payer BC, SELFPAY ==
--- NOTE | 2024-06-12 15:39 | MHC.OFFVIS ---
Intake Visit Reasons: 3m Follow Up Intake Note: Pt presents to the office today for a 3 month follow up. Allergies No Known Allergies [No Known Allergies*] Allergy (Verified 06/12/24 15:39) HPI Comments Details: Doe is a pleasant male. 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 - phimosis with tethered frenulum - nephrolithiasis - erectile dysfunction - gross hematuria Follow-up three-month - trimethoprim suppression for three-month UA today with persistent blood and protein Use methenamine and vitamin-C Discussed bladder irritants including coffee, chocolate, cigarette and marijuana smoking 03/21 office cysto endoscopy with recurrent cystitis cystica and mucosal injection with neovascularity - trigonitis Cystitis cystica Biopsy 07/17 cystitis cystica Prior response to suppression trimethoprim Nephrolithiasis Prior episodes Imaging - 12/16 renal ultrasound with mild left hydronephrosis but no stone seen - 12/18 left extrarenal pelvis - CT 07/22 - Both kidney nephrograms are symmetrical in size and configuration and position. There is a 6 mm in radiopaque calculi mid pole calyx left kidney with extrarenal left renal pelvis. There is a 1.2 cm exophytic lesion upper pole left kidney. Previously measured 6 mm. A 1.6 cm cyst is seen in midpole right kidney. 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 Current occupational exposures/hazards: No Cognitive needs: No Hearing needs: No Vision needs: No Results AMB Urinalysis, Automated UA Leukoctes 0 Shahnaz/uL Last Edit by Noemi Harmon CMA on 06/12/24 15:41 UA Nitrite Negative Last Edit by Noemi Harmon, [facility] on 06/12/24 15:41 UA Urobilinogen 0.2 mg/dL Last Edit by Noemi Harmon, [facility] on 06/12/24 15:41 UA Protein 100 mg/dL Last Edit by Noemi Harmon, [facility] on 06/12/24 15:41 UA pH 6.0 Last Edit by Noemi Harmon, [facility] on 06/12/24 15:41 UA Blood 200 Kyle/uL Last Edit by Noemi Harmon, [facility] on 06/12/24 15:41 UA Specific Olar 1.025 Last Edit by Noemi Harmon, [facility] on 06/12/24 15:41 UA Ketone Positive Last Edit by Noemi Harmon, [facility] on 06/12/24 15:41 UA Bilirubin 1 mg/dL Last Edit by Noemi Harmon, [facility] on 06/12/24 15:41 UA Glucose 0 mg/dL Last Edit by Noemi Harmon, [facility] on 06/12/24 15:41 Assessment & Plan Assessment & Plan (1) Cystitis cystica: Code(s): N30.80 - Other cystitis without hematuria Category: Medical (2) Trigonitis with hematuria: Code(s): N30.31 - Trigonitis with hematuria Category: Medical Plan Six-month follow-up Orders: Orders AMB Urinalysis Automated Today N30.31 - Trigonitis with hematuria Medications: New ascorbic acid (vitamin C) 1 g PO DAILY 90 days 90 tabs 1RF N30.80 - Other cystitis without hematuria, N39.0 - Urinary tract infection, site not specified methenamine hippurate 1 g PO DAILY 90 days 90 tabs 1RF N30.80 - Other cystitis without hematuria, N39.0 - Urinary tract infection, site not specified Discontinued trimethoprim Discontinued Reason: Doctor's Order 100 mg PO DAILY 90 days 90 tabs 1RF N30.80 - Other cystitis without hematuria, R33.9 - Retention of urine, unspecified Patient Instructions: Imaging studies, laboratory and physical exam results were discussed and reviewed in detail. No major barriers to patient understanding were identified. An opportunity to ask questions regarding the treatment plan was provided. All questions were answered. The patient expressed understanding and agreement with the above treatment plan. The patient is aware they should contact our office by phone for worsening of their current condition or the appearance of new urologic symptoms. Compliance is encouraged with any medications and followup testing that is ordered. It is a privilege to participate in the urologic care of your patient. If you have any questions or concerns regarding treatment for the above conditions, or other urologic issues, please do not hesitate to contact me. The office telephone contact is [phone]. This note is constructed using voice recognition software. While every effort has been made to ensure accuracy marketing researcher errors may have been included. Yours sincerely, Dr Ric Gabriel MD, [facility] - Urology Providers of Expert, Compassionate Care for the Genitourinary System Coding Level of Care Code Est Pt Level 3 (14246) Diagnoses Cystitis cystica N30.80 Trigonitis with hematuria N30.31
== END 2024-06-12 16:02 | disposition home or self-care (01) ==
PROVIDERS: Visit Provider Urology
DX: N30.80 Other cystitis without hematuria (principal); N30.31 Trigonitis with hematuria
CPT/HCPCS: 99213

== ENCOUNTER → 2024-06-12 15:19 | Outpatient (BNVA) | payer BC, SELFPAY | PROVIDERS: Visit Provider Urology | DX: N30.80 Other cystitis without hematuria (principal); N30.31 Trigonitis with hematuria; N20.0 Calculus of kidney | CPT/HCPCS: 81003 ==